=== PATIENT | female | born 2000 | race Two or more races ===

== ENCOUNTER 2020-04-05 01:13 | Emergency (ER) | payer OTHER ==
[~2020-04-05] VITALS: Ht 172.7 cm; Wt 75.0 kg
[2020-04-05] MEDS ORDERED: TEST100V11 INJ (01:37)
[2020-04-05] MEDS ORDERED: ACETAMINOPHEN 325 MG TABLET PO ONE (03:45)
[2020-04-05] MEDS ORDERED: IBUPROFEN 400 MG TABLET PO ONE (03:45)
[2020-04-05] MEDS ORDERED: PERTUSS(ACELL),DIPH,TET VAC/PF 0.5 ML VIAL IM ONE (03:45)
[2020-04-05 05:05] VITALS: BP 123/68
== END 2020-04-05 05:34 | disposition home or self-care (01) ==
LOC: EMS 01:17
DX: S60.811A Abrasion of right wrist, initial encounter (principal); S50.311A Abrasion of right elbow, initial encounter; F17.200 Nicotine dependence, unspecified, uncomplicated; V47.5XXA Car driver injured in collision with fixed or stationary object in traffic accident, initial encounter; Y93.89 Activity, other specified; Y92.89 Other specified places as the place of occurrence of the external cause; Y99.8 Other external cause status
CPT/HCPCS: 90471; 90715